=== PATIENT | male | born 1955 | race African-American/Black ===

== ENCOUNTER 2016-12-14 09:57 | Emergency (ER) | payer BC, OTHER ==
[2016-12-14 10:02] VITALS: BP 151/92; PULSE 93; TEMP 97.7; BMI 25.0
--- NOTE | 2016-12-14 11:42 | PDOC ---
History of Present Illness - General Chief Complaint: Pain Stated Complaint: LT FOOT PAIN Time Seen by Provider: 12/14/16 10:58 History Source: Patient - History of Present Illness Occurred: reports: last week Lower Extremity Pain Location: left: foot Method of Injury: Yes: direct blow Past History - Past Medical History Allergies/Adverse Reactions: Allergies Allergy/AdvReac Type Severity Reaction Status Date / Time No Known Allergies Allergy Verified 12/14/16 09:58 Home Medications: Ambulatory Orders Atorvastatin Ca [Lipitor] 20 mg PO HS 02/09/16 Ibuprofen [Motrin -] 800 mg PO Q6H #30 tablet 12/14/16 HTN: Yes - Immunization History Immunization Up to Date: Yes - Psycho/Social/Smoking Cessation Hx Anxiety: No Suicidal Ideation: No Smoking Status: No Smoking History: Former smoker Have you smoked in the past 12 months: No Number of Cigarettes Smoked Daily: 0 Information on smoking cessation initiated: No Hx Alcohol Use: No Drug/Substance Use Hx: No Substance Use Type: Alcohol Review of Systems - Review of Systems Musculoskeletal: Yes: Joint Pain, Joint Swelling *Physical Exam - Vital Signs Last Vital Signs Temp Pulse Resp BP Pulse Ox 97.7 F 93 H 20 151/92 98 12/14/16 09:59 12/14/16 09:59 12/14/16 09:59 12/14/16 09:59 12/14/16 09:59 - Physical Exam General Appearance: Yes: Appropriately Dressed. No: Apparent Distress HEENT: positive: Normal Voice Neck: positive: Supple Respiratory/Chest: negative: Respiratory Distress Extremity: positive: Tender, Swelling Integumentary: positive: Dry, Warm Neurologic: positive: Fully Oriented, Alert, Normal Mood/Affect Procedures - Splinting Splint Location: Left: Foot (posterior splint for metatarsal fx) Pre-Proc Neuro Vasc Exam: normal Hand-Made Type: orthoglass Splint Type: Yes: Long Leg Post-Proc Neuro Vasc Exam: normal [place] Bandage: yes, 4" ED Treatment Course - RADIOLOGY Radiology Studies Ordered: Category Date Time Status FOOT-LEFT [RAD] Stat Radiology 12/14/16 11:36 Ordered Medical Decision Making - Medical Decision Making 12/14/16 11:47 61-year-old male, denies any significant past medical history, here with persistent left foot pain status post trauma. Patient states week ago while at work. TV fell onto left foot. Has been using Aleve with some relief but as pain persists, here for evaluation. Patient well-appearing with minimal swelling to dorsum of left foot diffusely with tenderness to palpation mostly to medial aspect of foot. Will get x-rays today rule out fracture, pain control in ED 12/14/16 12:38 X-ray read as negative for fracture by radiologist but on my review of x-ray alongside Dr. Ortiz, pt clearly has a curvilinear lucency through mid to distal aspect of first left metatarsal consistent with a fracture. Patient's pain location also corresponds w/ finding. Will c/w ortho 12/14/16 13:11 Case discussed with orthopedic, who agrees with my findings and recommended posterior splint with crutches for non-weight bearing and for patient to follow- up in office this week 12/14/16 13:37 *DC/Admit/Observation/Transfer Diagnosis at time of Disposition: Metatarsal fracture Qualifiers: Encounter type: initial encounter Metatarsal bone: first Fracture type: closed Fracture alignment: displaced Laterality: left Qualified Code(s): S92.312A - Displaced fracture of first metatarsal bone, left foot, initial encounter for closed fracture - Discharge Dispostion Disposition: HOME Condition at time of disposition: Good - Prescriptions Prescriptions: Ibuprofen [Motrin -] 800 mg PO Q6H #30 tablet - Referrals Referrals: Pam Mclaughlin MD [Primary Care Provider] - Jordon Higginbotham MD [Staff Physician] - - Patient Instructions Printed Discharge Instructions: DI for Foot Fracture Additional Instructions: Follow with Dr Higginbotham this week - Post Discharge Activity Work/School Note: Back to Work
== END 2016-12-14 14:18 | disposition home or self-care (01) ==
LOC: JERFT 09:57
PROC: 2W3MX1Z Immobilization of Left Lower Extremity using Splint (ICD-10-PCS; principal; 2016-12-14)
DX: S92.312A Displaced fracture of first metatarsal bone, left foot, initial encounter for closed fracture (principal); W20.8XXA Other cause of strike by thrown, projected or falling object, initial encounter; Y93.89 Activity, other specified; Y92.89 Other specified places as the place of occurrence of the external cause; Y99.0 Civilian activity done for income or pay
CPT/HCPCS: 73630-TC-LT; 99281-25

== ENCOUNTER 2021-04-06 04:40 | Day surgery (SDC) | payer OTHER ==
[2021-04-01 14:38] VITALS: BMI 23.9
[2021-04-06 10:55] VITALS: TEMP 97.8
[2021-04-06 12:01] VITALS: BP 125/80; PULSE 77
== END 2021-04-06 12:01 | disposition home or self-care (01) ==
LOC: JASU-ENDO 04:40
PROVIDERS: ATTEND Internal Medicine Gastroenterology
PROC: 0DB98ZX Excision of Duodenum, Via Natural or Artificial Opening Endoscopic, Diagnostic (ICD-10-PCS; 2021-04-06)
PROC: 0DB78ZX Excision of Stomach, Pylorus, Via Natural or Artificial Opening Endoscopic, Diagnostic (ICD-10-PCS; 2021-04-06)
PROC: 0DJD8ZZ Inspection of Lower Intestinal Tract, Via Natural or Artificial Opening Endoscopic (ICD-10-PCS; principal; 2021-04-06 10:00)
DX: Z12.11 Encounter for screening for malignant neoplasm of colon (principal); Z86.010 Personal history of colon polyps; K29.50 Unspecified chronic gastritis without bleeding; B96.81 Helicobacter pylori [H. pylori] as the cause of diseases classified elsewhere; K64.8 Other hemorrhoids; K57.30 Diverticulosis of large intestine without perforation or abscess without bleeding
CPT/HCPCS: 43239; G0105; 88305-TC; 88342-TC

== ENCOUNTER 2022-06-15 13:39 | Emergency (ER) | payer OTHER ==
[2022-06-15 14:05] VITALS: BMI 23.0
[2022-06-15 16:51] LABS: BASO % 1.7 % (0-2.0); HEMATOCRIT 31.2 % (35.4-49); HEMOGLOBIN 10.8 GM/dL (11.7-16.9); LYMPH % 18.6 % (8-40); MCH 31.5 pg (25.7-33.7); MCHC 34.7 g/dl (32.0-35.9); MEAN CELL VOLUME 90.8 fl (80-96); MEAN PLT VOLUME 7.7 fl (7.5-11.1); MONO % 11.8 % (3.8-10.2); NEUT % 65.9 % (42.8-82.8); PLATELET COUNT 205 10^3/uL (134-434); RBC 3.43 M/mm3 (4.00-5.60); RDW 14.6 % (11.9-15.9); WHITE BLOOD COUNT 5.8 K/mm3 (4.0-10.0)
[2022-06-15 16:56] LABS: INR 1.31 (0.83-1.09); PROTHROMBIN TIME (PATIENT) 15.1 SEC (9.7-13.0)
[2022-06-15 16:59] LABS: ACTIVATED PTT 26.8 SECONDS (25.2-36.5)
[2022-06-15 17:13] LABS: ALBUMIN 4.4 g/dl (3.4-5.0); BLOOD UREA NITROGEN 7.4 mg/dL (7-18)
[2022-06-15 17:14] LABS: CALCIUM 9.2 mg/dL (8.5-10.1); MAGNESIUM 2.2 mg/dL (1.8-2.4)
[2022-06-15 17:18] LABS: CREATININE 0.9 mg/dL (0.55-1.3)
[2022-06-15 17:19] LABS: BILIRUBIN,TOTAL 0.8 mg/dL (0.2-1); TOT PROT 7.5 g/dl (6.4-8.2)
[2022-06-15] MEDS ORDERED: SODIUM CHLORIDE 0.9% 500 ML INFUS.BAG IV ONE (17:29)
[2022-06-15] MEDS ORDERED: ATORVASTATIN CA 20 MG TABLET (FP) PO ONE (18:03)
[2022-06-15] MEDS ORDERED: amLODIPine BESYLATE 10 MG TABLET (FP) PO ONE (18:03)
[2022-06-15] MEDS ORDERED: amLODIPine BESYLATE 10 MG TABLET (FP) ONE (19:03)
[2022-06-15] MEDS ORDERED: ATORVASTATIN CA 20 MG TABLET (FP) ONE (19:03)
[2022-06-15 20:05] VITALS: TEMP 98.4
[2022-06-15 20:58] LABS: EOS % 1.7 % (0-4.5); HEMATOCRIT 32.6 % (35.4-49); HEMOGLOBIN 11.1 GM/dL (11.7-16.9); LYMPH % 26.5 % (8-40); MCH 31.3 pg (25.7-33.7); MCHC 34.1 g/dl (32.0-35.9); MEAN CELL VOLUME 91.7 fl (80-96); MEAN PLT VOLUME 7.3 fl (7.5-11.1); MONO % 11.4 % (3.8-10.2); NEUT % 59.4 % (42.8-82.8); PLATELET COUNT 233 10^3/uL (134-434); RBC 3.55 M/mm3 (4.00-5.60); RDW 14.6 % (11.9-15.9); WHITE BLOOD COUNT 8.4 K/mm3 (4.0-10.0)
[2022-06-15 21:28] VITALS: BP 140/92; PULSE 102
== END 2022-06-15 21:29 | disposition home or self-care (01) ==
LOC: JER 13:39
DX: K92.1 Melena (principal)
CPT/HCPCS: 36415; 71046-TC-FY; 80053; 82272; 83735; 85025; 85610; 85730; 86850; 86900; 86901; 99284-25

== ENCOUNTER 2024-09-27 15:27 | Inpatient (IN) | payer MEDICARE, OTHER ==
[2024-09-27] MEDS ORDERED: ALBUTEROL SO4 2.5/IPRATROPIUM 0.5 INH SOL 3 ML VIAL.NEB. NEB ONE (16:18)
[2024-09-27] MEDS ORDERED: DEXAMETHASONE SOD PHOSPHATE 10 MG/1 ML VIAL ONE (16:32)
[2024-09-27] MEDS: ALBUTEROL SO4 2.5/IPRATROPIUM 0.5 INH SOL 3 ML VIAL.NEB. NEB ONE (16:32)
[2024-09-27] MEDS: DEXAMETHASONE SOD PHOSPHATE 10 MG/1 ML VIAL IVPUSH ONE (16:40)
[2024-09-27 17:54] LABS: VENOUS O2 SATURATION 54.5 % (70-80); VENOUS PH 7.333 (7.310-7.410)
[2024-09-27 17:55] LABS: BASO % 0.2 % (0-2.0); EOS % 0.2 % (0-4.5); HEMATOCRIT 39.5 % (35.4-49); HEMOGLOBIN 13.2 GM/dL (11.7-16.9); LYMPH % 6.6 % (8-40); MCH 28.4 pg (25.7-33.7); MCHC 33.4 g/dl (32.0-35.9); MEAN CELL VOLUME 85.2 fl (80-96); MEAN PLT VOLUME 9.1 fl (7.5-11.1); PLATELET COUNT 328 10^3/uL (134-434); RBC 4.63 M/mm3 (4.00-5.60); RDW 16.9 % (11.9-15.9)
[2024-09-27 18:02] LABS: INR 1.41 (0.83-1.09); PROTHROMBIN TIME (PATIENT) 16.1 SEC (9.7-13.0)
[2024-09-27 18:05] LABS: ACTIVATED PTT 29.6 SECONDS (25.2-36.5)
[2024-09-27 18:18] LABS: CHLORIDE 76 mmol/L (98-107); POTASSIUM 3.6 mmol/L (3.5-5.1)
[2024-09-27 18:21] LABS: CALCIUM 8.6 mg/dL (8.5-10.1)
[2024-09-27 18:22] LABS: ALBUMIN 3.1 g/dl (3.4-5.0); CO2 16 mmol/L (21-32); GLUCOSE,RANDOM 187 mg/dL (74-106); MAGNESIUM 2.5 mg/dL (1.8-2.4)
[2024-09-27 18:25] LABS: SGOT/AST 62 U/L (15-37); SGPT/ALT 50 U/L (13-61)
[2024-09-27 18:26] LABS: BILIRUBIN,TOTAL 1.8 mg/dL (0.2-1); TOT PROT 7.4 g/dl (6.4-8.2)
[2024-09-27 18:28] LABS: ALK PHOS 65 U/L (45-117)
[2024-09-27 18:43] LABS: ANION GAP 27 mmol/L (4-13); BLOOD UREA NITROGEN 118.5 mg/dL (7-18); CREATININE 8.4 mg/dL (0.55-1.3); SODIUM 119 mmol/L (136-145)
[2024-09-27 18:50] LABS: PHOSPHOROUS > 9.0 mg/dL (2.5-4.9)
[2024-09-27 18:51] LABS: EPI CELLS 19 /uL (0-25.1); HYALINE CASTS 1 /uL (0-3.1); URINE APPEARANCE TURBID; URINE BILIRUBIN 3+ (NEGATIVE); URINE COLOR DK YELLOW; URINE GLUCOSE (UA) NEGATIVE (NEGATIVE); URINE KETONE TRACE (NEGATIVE); URINE LEUK ESTERASE 1+ (NEGATIVE); URINE NITRITE POSITIVE (NEGATIVE); URINE PROTEIN 1+ (NEGATIVE); URINE WBC 19 /uL (0-25.8)
[2024-09-27 19:00] LABS: URINE BACTERIA 51.9 /uL (0-1359); URINE RBC 139.3 /uL (0-23.9)
[2024-09-27] MEDS: SODIUM CHLORIDE 0.9% 1000 ML INFUS.BAG IV ONE (21:44)
[2024-09-27] MEDS: CHLORHEXIDINE GLUCONATE 4% CLEANSER FOR DECOLONIZATION TP SCH (21:57)
[2024-09-27] MEDS: MUPIROCIN 2% TOPICAL OINTMENT FOR DECOLONIZATION NS SCH (21:57)
[2024-09-27] MEDS: SODIUM CHLORIDE 1,000 ML IV SCH (22:54)
[2024-09-27] MEDS ORDERED: CEFTRIAXONE 1 GM in DEXTROSE 5%-WATER - 50 ML IVPB ONE (23:15)
[2024-09-27] MEDS ORDERED: CEFTRIAXONE 1 G/50 ML PREMIX 50 ML IVPB ONE (23:49)
[2024-09-27] MEDS: ONDANSETRON 4 MG/2 ML VIAL IVPUSH ONE (23:50)
[2024-09-27] MEDS: CEFTRIAXONE 1 G/50 ML PREMIX 50 ML IVPB ONE (23:53)
[2024-09-28 00:22] LABS: CHLORIDE 81 mmol/L (98-107); POTASSIUM 4.1 mmol/L (3.5-5.1); SODIUM 121 mmol/L (136-145)
[2024-09-28 00:25] LABS: ALBUMIN 2.8 g/dl (3.4-5.0); ANION GAP 25 mmol/L (4-13); CO2 15 mmol/L (21-32)
[2024-09-28 00:26] LABS: GLUCOSE,RANDOM 209 mg/dL (74-106)
[2024-09-28 00:28] LABS: SGOT/AST 75 U/L (15-37); SGPT/ALT 51 U/L (13-61)
[2024-09-28 00:30] LABS: BILIRUBIN,TOTAL 1.6 mg/dL (0.2-1); BLOOD UREA NITROGEN 124.4 mg/dL (7-18); CREATININE 7.9 mg/dL (0.55-1.3); TOT PROT 6.7 g/dl (6.4-8.2)
[2024-09-28 00:31] LABS: ALK PHOS 54 U/L (45-117)
[2024-09-28] MEDS: SODIUM CHLORIDE 1,000 ML IV STA (01:00)
[2024-09-28 01:29] LABS: LACTIC ACID 4.2 mmol/L (0.4-2.0)
[2024-09-28] MEDS ORDERED: METOPROLOL TARTRATE 5 MG/5 ML VIAL ONE (01:43)
[2024-09-28] MEDS: METOPROLOL TARTRATE 5 MG/5 ML VIAL IVPUSH ONE ×3 (01:45→06:46)
[2024-09-28 03:41] LABS: CHLORIDE 84 mmol/L (98-107); POTASSIUM 3.9 mmol/L (3.5-5.1); SODIUM 123 mmol/L (136-145)
[2024-09-28 03:43] LABS: CALCIUM 7.1 mg/dL (8.5-10.1)
[2024-09-28 03:44] LABS: ALBUMIN 2.6 g/dl (3.4-5.0); ANION GAP 22 mmol/L (4-13); CO2 17 mmol/L (21-32); GLUCOSE,RANDOM 202 mg/dL (74-106)
[2024-09-28 03:47] LABS: SGOT/AST 109 U/L (15-37); SGPT/ALT 58 U/L (13-61)
[2024-09-28 03:48] LABS: BILIRUBIN,TOTAL 1.2 mg/dL (0.2-1)
[2024-09-28 03:49] LABS: TOT PROT 6.2 g/dl (6.4-8.2)
[2024-09-28 03:50] LABS: ALK PHOS 53 U/L (45-117)
[2024-09-28 03:58] LABS: CREATININE 7.5 mg/dL (0.55-1.3)
[2024-09-28] MEDS: CALCIUM GLUC IN NACL, ISO-OSM 1 GM/50 ML BAG IVPB SCH (04:46)
[2024-09-28] MEDS: INSULIN ASPART SLIDING SCALE (NOVOLOG) 1 VIAL SQ SCH (06:02)
[2024-09-28 07:25] LABS: HEMATOCRIT 31.9 % (35.4-49); HEMOGLOBIN 10.7 GM/dL (11.7-16.9); MCH 28.7 pg (25.7-33.7); MCHC 33.6 g/dl (32.0-35.9); MEAN CELL VOLUME 85.4 fl (80-96); MEAN PLT VOLUME 9.2 fl (7.5-11.1); PLATELET COUNT 259 10^3/uL (134-434); RBC 3.74 M/mm3 (4.00-5.60); RDW 16.6 % (11.9-15.9); WHITE BLOOD COUNT 21.8 K/mm3 (4.0-10.0)
[2024-09-28 07:34] LABS: INR 1.38 (0.83-1.09); PROTHROMBIN TIME (PATIENT) 15.7 SEC (9.7-13.0)
[2024-09-28 07:39] LABS: CHLORIDE 87 mmol/L (98-107); POTASSIUM 3.8 mmol/L (3.5-5.1); SODIUM 124 mmol/L (136-145)
[2024-09-28 07:42] LABS: ANION GAP 21 mmol/L (4-13); CO2 17 mmol/L (21-32); MAGNESIUM 2.3 mg/dL (1.8-2.4)
[2024-09-28] MEDS: CEFTRIAXONE 1,000 MG in DEXTROSE 5%-WATER - 50 ML IVPB ONE (07:43)
[2024-09-28] MEDS: CEFTRIAXONE 1 GM in CEFTRIAXONE 1 G/50 ML PREMIX 50 ML IVPB ONE (07:43)
[2024-09-28 07:44] LABS: ALBUMIN 2.6 g/dl (3.4-5.0); AMYLASE 429 U/L (25-115); GLUCOSE,RANDOM 150 mg/dL (74-106)
[2024-09-28 07:45] LABS: SGPT/ALT 58 U/L (13-61)
[2024-09-28] MEDS ORDERED: PIPERACILLIN/TAZOB 2.25 GM 2.25 GM in DEXTROSE 5%-WATER - 50 ML IVPB SCH (07:45)
[2024-09-28 07:46] LABS: BLOOD UREA NITROGEN 132.5 mg/dL (7-18); CALCIUM 8.6 mg/dL (8.5-10.1); PHOSPHOROUS 7.2 mg/dL (2.5-4.9); SGOT/AST 112 U/L (15-37)
[2024-09-28 07:47] LABS: CREATININE 7.5 mg/dL (0.55-1.3); TOT PROT 6.1 g/dl (6.4-8.2)
[2024-09-28 07:49] LABS: BILIRUBIN,TOTAL 1.1 mg/dL (0.2-1)
[2024-09-28 07:50] LABS: ALK PHOS 54 U/L (45-117)
[2024-09-28] MEDS: ALBUTEROL SO4 2.5/IPRATROPIUM 0.5 INH SOL 3 ML VIAL.NEB. NEB SCH (08:27)
[2024-09-28 08:54] LABS: ANISOCYTOSIS 0; MACROCYTOSIS 0
[2024-09-28] MEDS: ENOXAPARIN NA (PORCINE) 30 MG/0.3 ML DISP.SYRIN SQ SCH (09:09)
[2024-09-28] MEDS: PIPERACILLIN/TAZOB 2.25 GM 2.25 GM/50 ML BAG IVPB SCH ×2 (09:09→17:07)
[2024-09-28] MEDS ORDERED: ENOXAPARIN NA (PORCINE) 30 MG/0.3 ML DISP.SYRIN SQ SCH ×2 (10:00)
[2024-09-28 11:24] LABS: CHLORIDE 86 mmol/L (98-107); POTASSIUM 3.9 mmol/L (3.5-5.1); SODIUM 124 mmol/L (136-145)
[2024-09-28 11:27] LABS: CALCIUM 7.9 mg/dL (8.5-10.1)
[2024-09-28 11:28] LABS: ALBUMIN 2.5 g/dl (3.4-5.0); ANION GAP 21 mmol/L (4-13); BLOOD UREA NITROGEN 133.1 mg/dL (7-18); CO2 17 mmol/L (21-32); GLUCOSE,RANDOM 139 mg/dL (74-106)
[2024-09-28] MEDS ORDERED: LACTATED RINGERS SOLUTION 1,000 ML/1,000 ML INFUS.BAG IV SCH ×2 (11:30→14:46)
[2024-09-28 11:31] LABS: SGOT/AST 104 U/L (15-37); SGPT/ALT 57 U/L (13-61)
[2024-09-28 11:33] LABS: BILIRUBIN,TOTAL 1.2 mg/dL (0.2-1); TOT PROT 6.1 g/dl (6.4-8.2)
[2024-09-28 11:34] LABS: ALK PHOS 57 U/L (45-117)
[2024-09-28 11:45] LABS: CREATININE 7.6 mg/dL (0.55-1.3)
[2024-09-28] MEDS: LACTATED RINGERS SOLUTION 1,000 ML/1,000 ML INFUS.BAG IV SCH ×3 (12:05→17:22)
[2024-09-28] MEDS: LACTATED RINGERS SOLUTION 1000 ML INFUS.BAG IV ONE (12:35)
[2024-09-28 15:23] LABS: BILIRUBIN,DIRECT 0.7 mg/dL (0.0-0.2)
[2024-09-28 16:05] LABS: CHLORIDE 88 mmol/L (98-107); POTASSIUM 3.7 mmol/L (3.5-5.1); SODIUM 125 mmol/L (136-145)
[2024-09-28 16:08] LABS: CALCIUM 7.8 mg/dL (8.5-10.1)
[2024-09-28 16:09] LABS: ANION GAP 21 mmol/L (4-13); CO2 16 mmol/L (21-32); GLUCOSE,RANDOM 129 mg/dL (74-106)
[2024-09-28 16:12] LABS: CREATININE 7.4 mg/dL (0.55-1.3)
[2024-09-28 16:15] LABS: BLOOD UREA NITROGEN 131.4 mg/dL (7-18)
[2024-09-28] MEDS: METOPROLOL TARTRATE 5 MG/5 ML VIAL IVPUSH SCH (21:18)
[2024-09-28 21:33] LABS: CHLORIDE 91 mmol/L (98-107); POTASSIUM 3.6 mmol/L (3.5-5.1); SODIUM 127 mmol/L (136-145)
[2024-09-28 21:34] LABS: CALCIUM 7.9 mg/dL (8.5-10.1)
[2024-09-28 21:35] LABS: ANION GAP 19 mmol/L (4-13); CO2 18 mmol/L (21-32); GLUCOSE,RANDOM 127 mg/dL (74-106)
[2024-09-28 21:38] LABS: CREATININE 7.2 mg/dL (0.55-1.3)
[2024-09-28 21:42] LABS: BLOOD UREA NITROGEN 126.8 mg/dL (7-18)
[2024-09-29] MEDS: LACTATED RINGERS SOLUTION 1,000 ML/1,000 ML INFUS.BAG IV SCH (06:24)
[2024-09-29 08:32] LABS: CHLORIDE 92 mmol/L (98-107); POTASSIUM 3.7 mmol/L (3.5-5.1); SODIUM 129 mmol/L (136-145)
[2024-09-29 08:37] LABS: ANION GAP 18 mmol/L (4-13); CO2 19 mmol/L (21-32); GLUCOSE,RANDOM 118 mg/dL (74-106)
[2024-09-29 08:40] LABS: CREATININE 7.2 mg/dL (0.55-1.3)
[2024-09-29 08:41] LABS: BLOOD UREA NITROGEN 126.7 mg/dL (7-18)
[2024-09-29 08:55] LABS: CALCIUM 8.3 mg/dL (8.5-10.1)
[2024-09-29] MEDS: THIAMINE HCL 200 MG/2 ML VIAL IVPB SCH (10:21)
[2024-09-29 13:27] LABS: CHLORIDE 93 mmol/L (98-107); POTASSIUM 3.4 mmol/L (3.5-5.1); SODIUM 130 mmol/L (136-145)
[2024-09-29 13:28] LABS: CALCIUM 7.8 mg/dL (8.5-10.1)
[2024-09-29 13:29] LABS: ANION GAP 19 mmol/L (4-13); CO2 18 mmol/L (21-32); GLUCOSE,RANDOM 113 mg/dL (74-106)
[2024-09-29 13:32] LABS: CREATININE 6.9 mg/dL (0.55-1.3)
[2024-09-29 13:34] LABS: BLOOD UREA NITROGEN 127.5 mg/dL (7-18)
[2024-09-29] MEDS: POTASSIUM CHLORIDE ORAL LIQUID 20 MEQ/15 ML NGT ONE (14:20)
[2024-09-29] MEDS: PANTOPRAZOLE SODIUM 40 MG VIAL IVPUSH ONE (16:20)
[2024-09-29] MEDS: KCL 10 MEQ IVPB 10 MEQ/100 ML INFUS.BAG IVPB SCH (16:20)
[2024-09-30 08:07] LABS: HEMATOCRIT 32.7 % (35.4-49); HEMOGLOBIN 10.8 GM/dL (11.7-16.9); MCH 28.6 pg (25.7-33.7); MCHC 33.1 g/dl (32.0-35.9); MEAN CELL VOLUME 86.2 fl (80-96); MEAN PLT VOLUME 8.5 fl (7.5-11.1); PLATELET COUNT 268 10^3/uL (134-434); RBC 3.79 M/mm3 (4.00-5.60); RDW 16.7 % (11.9-15.9); WHITE BLOOD COUNT 15.5 K/mm3 (4.0-10.0)
[2024-09-30 08:30] LABS: CHLORIDE 98 mmol/L (98-107); POTASSIUM 3.8 mmol/L (3.5-5.1); SODIUM 133 mmol/L (136-145)
[2024-09-30 08:37] LABS: ALBUMIN 2.4 g/dl (3.4-5.0); ANION GAP 13 mmol/L (4-13); CALCIUM 8.7 mg/dL (8.5-10.1); CO2 22 mmol/L (21-32)
[2024-09-30 08:38] LABS: GLUCOSE,RANDOM 98 mg/dL (74-106); MAGNESIUM 2.4 mg/dL (1.8-2.4)
[2024-09-30 08:39] LABS: BLOOD UREA NITROGEN 118.8 mg/dL (7-18)
[2024-09-30 08:40] LABS: SGOT/AST 36 U/L (15-37); SGPT/ALT 36 U/L (13-61)
[2024-09-30 08:41] LABS: CREATININE 6.2 mg/dL (0.55-1.3)
[2024-09-30 08:42] LABS: BILIRUBIN,TOTAL 0.9 mg/dL (0.2-1); TOT PROT 5.8 g/dl (6.4-8.2)
[2024-09-30 08:43] LABS: ALK PHOS 51 U/L (45-117)
[2024-09-30] MEDS: PANTOPRAZOLE SODIUM 40 MG VIAL IVPUSH SCH (09:06)
[2024-09-30] MEDS: LACTATED RINGERS SOLUTION 1,000 ML/1,000 ML INFUS.BAG IV SCH (12:42)
[2024-10-01 08:20] LABS: EOS % 0.4 % (0-4.5); HEMATOCRIT 32.4 % (35.4-49); HEMOGLOBIN 10.9 GM/dL (11.7-16.9); LYMPH % 4.5 % (8-40); MCH 29.1 pg (25.7-33.7); MCHC 33.6 g/dl (32.0-35.9); MEAN CELL VOLUME 86.8 fl (80-96); MEAN PLT VOLUME 8.3 fl (7.5-11.1); MONO % 7.3 % (3.8-10.2); NEUT % 87.8 % (42.8-82.8); PLATELET COUNT 271 10^3/uL (134-434); RBC 3.73 M/mm3 (4.00-5.60); RDW 16.7 % (11.9-15.9); WHITE BLOOD COUNT 17.1 K/mm3 (4.0-10.0)
[2024-10-01 08:50] LABS: POTASSIUM 3.8 mmol/L (3.5-5.1)
[2024-10-01 08:52] LABS: ALBUMIN 2.3 g/dl (3.4-5.0); BLOOD UREA NITROGEN 99.2 mg/dL (7-18); CALCIUM 8.7 mg/dL (8.5-10.1); MAGNESIUM 2.1 mg/dL (1.8-2.4)
[2024-10-01 08:55] LABS: CREATININE 4.4 mg/dL (0.55-1.3)
[2024-10-01 08:57] LABS: BILIRUBIN,TOTAL 0.8 mg/dL (0.2-1); TOT PROT 5.8 g/dl (6.4-8.2)
[2024-10-01] MEDS ORDERED: BUPIVACAINE HCL/PF 0.25% (2.5MG/ML) 10 ML VIAL ONE (11:19)
[2024-10-01] MEDS ORDERED: HEPARIN NA (PORCINE) 5,000 UNITS/ML 1ML VIAL ONE (11:24)
[2024-10-01] MEDS ORDERED: CEFOXITIN SODIUM 2 GM IVPB ONE (11:24)
[2024-10-01] MEDS ORDERED: ROCURONIUM BROMIDE 50 MG/5 ML SYRINGE ONE (12:06)
[2024-10-01] MEDS ORDERED: SUCCINYLCHOLINE CHLORIDE 200 MG/10 ML SYRINGE ONE (12:06)
[2024-10-01] MEDS ORDERED: PROPOFOL 20 ML ONE (12:06)
[2024-10-01] MEDS ORDERED: HYDROmorphone HCl 2 MG/ML VIAL ONE ×2 (12:06→14:27)
[2024-10-01] MEDS: BUPIVACAINE HCL/PF 0.25% (2.5MG/ML) 10 ML VIAL IJ ONE ×2 (12:31)
[2024-10-01] MEDS ORDERED: PIPERACILLIN/TAZOBACTAM 3.375 GM VIAL IVPB ONE (14:11)
[2024-10-01] MEDS ORDERED: NEOSTIGMINE METHYLSULFATE 0.5 MG/1 ML - 10 ML MDV ONE (15:54)
[2024-10-01] MEDS: LACTATED RINGERS SOLUTION 1,000 ML/1,000 ML INFUS.BAG IV ONE ×2 (17:17→18:44)
[2024-10-01 20:29] LABS: ARTERIAL BLOOD GAS PO2 95.1 mmHg (80-100); ARTERIAL BLOOD GAS pH 7.377 (7.350-7.450)
[2024-10-01 20:30] LABS: ARTERIAL BLD GAS O2 SATURATION 97.2 % (95-98); ARTERIAL BLOOD GAS BASE EXCESS -5.1 mmol/L (-2-2)
[2024-10-01 20:31] LABS: ALLENS TEST POSITIVE
[2024-10-01 20:32] LABS: HEMATOCRIT 35.7 % (35.4-49); HEMOGLOBIN 11.8 GM/dL (11.7-16.9); MCH 28.8 pg (25.7-33.7); MEAN CELL VOLUME 87.2 fl (80-96); MEAN PLT VOLUME 8.3 fl (7.5-11.1); PLATELET COUNT 318 10^3/uL (134-434); RDW 16.2 % (11.9-15.9); WHITE BLOOD COUNT 29.9 K/mm3 (4.0-10.0)
[2024-10-01 21:10] LABS: POTASSIUM 4.6 mmol/L (3.5-5.1)
[2024-10-01 21:12] LABS: CALCIUM 7.8 mg/dL (8.5-10.1)
[2024-10-01 21:13] LABS: BLOOD UREA NITROGEN 89.1 mg/dL (7-18); MAGNESIUM 1.8 mg/dL (1.8-2.4)
[2024-10-01 21:16] LABS: PHOSPHOROUS 4.4 mg/dL (2.5-4.9)
[2024-10-01 21:17] LABS: ALBUMIN 1.7 g/dl (3.4-5.0); BILIRUBIN,TOTAL 2.4 mg/dL (0.2-1); TOT PROT 4.2 g/dl (6.4-8.2)
[2024-10-01] MEDS: DEXTROSE 50%-WATER 25 GM/50 ML DISP.SYRIN IVPUSH ONE (21:34)
[2024-10-01] MEDS: MAGNESIUM 2GM/50ML STERILE WATER IVPB IVPB ONE (21:34)
[2024-10-01] MEDS: ACETAMINOPHEN 1000 MG/100 ML BAG IVPB ONE (22:38)
[2024-10-01] MEDS: CALCIUM GLUC IN NACL, ISO-OSM 1 GM/50 ML BAG IVPB SCH (22:39)
[2024-10-01] MEDS ORDERED: NOREPINEPHRINE BITARTRATE 4 MG/4 ML ML IV ONE (23:11)
[2024-10-01] MEDS: NOREPINEPHRINE BITARTRATE 4,000 MCG in DEXTROSE 5%-WATER - 496 ML IV SCH (23:20)
[2024-10-01 23:39] LABS: ANISOCYTOSIS 0; HELMET CELLS 0; HOWELL-JOLLY BODIES 0; MACROCYTOSIS 0; OVALOCYTE 0; ROULEAU 0; SICKELED CELLS 0; TARGET CELLS 0; TEAR DROP CELLS 0; TOXIC GRANULATION 0
[2024-10-01] MEDS ORDERED: ALBUMIN HUMAN 5% 500 ML IV SOLUTION IV ONE (23:53)
[2024-10-02] MEDS: HYDROmorphone HCl 2 MG/ML VIAL IVPUSH PRN (00:01)
[2024-10-02] MEDS: LACTATED RINGERS SOLUTION 1,000 ML/1,000 ML INFUS.BAG IV SCH ×2 (00:03→10:16)
[2024-10-02] MEDS: ACETAMINOPHEN 1000 MG/100 ML BAG IVPB SCH (00:04)
[2024-10-02] MEDS: ALBUMIN HUMAN 5% 500 ML IV SOLUTION IV ONE (00:06)
[2024-10-02] MEDS: HYDROmorphone *PCA* 10MG/50ML DISP.SYRIN PCA SCH (01:09)
[2024-10-02] MEDS: PIPERACILLIN/TAZOB 2.25 GM 2.25 GM/50 ML BAG IVPB SCH (01:14)
[2024-10-02] MEDS: INSULIN ASPART SLIDING SCALE (NOVOLOG) 1 VIAL SQ SCH (06:31)
[2024-10-02 06:54] LABS: HEMATOCRIT 33.2 % (35.4-49); MCH 29.2 pg (25.7-33.7); MCHC 33.1 g/dl (32.0-35.9); MEAN CELL VOLUME 88.2 fl (80-96); MEAN PLT VOLUME 8.5 fl (7.5-11.1); PLATELET COUNT 302 10^3/uL (134-434); RBC 3.77 M/mm3 (4.00-5.60); RDW 15.7 % (11.9-15.9); WHITE BLOOD COUNT 28.4 K/mm3 (4.0-10.0)
[2024-10-02 07:06] LABS: POTASSIUM 4.9 mmol/L (3.5-5.1)
[2024-10-02 07:15] LABS: ALBUMIN 1.6 g/dl (3.4-5.0); BLOOD UREA NITROGEN 91.7 mg/dL (7-18)
[2024-10-02 07:18] LABS: CREATININE 4.7 mg/dL (0.55-1.3)
[2024-10-02 07:19] LABS: BILIRUBIN,TOTAL 2.8 mg/dL (0.2-1); TOT PROT 4.2 g/dl (6.4-8.2)
[2024-10-02] MEDS: ALBUTEROL SO4 2.5/IPRATROPIUM 0.5 INH SOL 3 ML VIAL.NEB. NEB SCH (08:15)
[2024-10-02 08:51] LABS: ANISOCYTOSIS 0; MACROCYTOSIS 0
[2024-10-02] MEDS: PANTOPRAZOLE SODIUM 40 MG VIAL IVPUSH SCH (09:34)
[2024-10-02] MEDS: THIAMINE HCL 200 MG/2 ML VIAL IVPB SCH (09:35)
[2024-10-02] MEDS: METOPROLOL TARTRATE 5 MG/5 ML VIAL IVPUSH SCH (09:35)
[2024-10-02] MEDS: ENOXAPARIN NA (PORCINE) 30 MG/0.3 ML DISP.SYRIN SQ SCH (09:36)
[2024-10-02] MEDS: MUPIROCIN 2% TOPICAL OINTMENT FOR DECOLONIZATION NS SCH (09:36)
[2024-10-02] MEDS: CHLORHEXIDINE GLUCONATE 4% CLEANSER FOR DECOLONIZATION TP SCH (21:06)
[2024-10-03 06:58] LABS: HEMATOCRIT 27.3 % (35.4-49); HEMOGLOBIN 9.1 GM/dL (11.7-16.9); MCH 29.5 pg (25.7-33.7); MCHC 33.5 g/dl (32.0-35.9); MEAN CELL VOLUME 88.2 fl (80-96); MEAN PLT VOLUME 8.4 fl (7.5-11.1); PLATELET COUNT 301 10^3/uL (134-434); RDW 16.5 % (11.9-15.9); WHITE BLOOD COUNT 23.8 K/mm3 (4.0-10.0)
[2024-10-03] MEDS ORDERED: PNEUMOC 20-VAL CONJ-DIP CRM/PF 0.5 ML SYRINGE IM ONE (08:00)
[2024-10-03 08:10] LABS: POTASSIUM 4.3 mmol/L (3.5-5.1)
[2024-10-03 08:13] LABS: ALBUMIN 1.7 g/dl (3.4-5.0); BLOOD UREA NITROGEN 97.3 mg/dL (7-18); CALCIUM 8.1 mg/dL (8.5-10.1); MAGNESIUM 2.4 mg/dL (1.8-2.4)
[2024-10-03 08:16] LABS: PHOSPHOROUS 5.2 mg/dL (2.5-4.9)
[2024-10-03 08:17] LABS: CREATININE 5.2 mg/dL (0.55-1.3)
[2024-10-03 08:18] LABS: BILIRUBIN,TOTAL 1.6 mg/dL (0.2-1); TOT PROT 4.6 g/dl (6.4-8.2)
[2024-10-03 09:12] LABS: ANISOCYTOSIS 0; HELMET CELLS 0; HOWELL-JOLLY BODIES 0; MACROCYTOSIS 0; OVALOCYTE 0; ROULEAU 0; SICKELED CELLS 0; TARGET CELLS 0; TEAR DROP CELLS 0; TOXIC GRANULATION 0
[2024-10-03 15:12] LABS: C-ANCA <1:20 titer (Neg:<1:20)
[2024-10-03] MEDS: AMINO ACIDS 4.25%/D5W 1,000 ML IV SCH (17:12)
[2024-10-03] MEDS: MULTIVIT INJ. ADULT COMBO WITH VIT K 1 COMBO 10 ML VIAL IV SCH (17:13)
[2024-10-03] MEDS: LACTATED RINGERS SOLUTION 1,000 ML/1,000 ML INFUS.BAG IV SCH (18:59)
[2024-10-03] MEDS: MULTIVIT INJECTION ADULT 10 ML in AMINO ACIDS 4.25%/D5W 1,000 ML IV SCH (19:00)
[2024-10-04 07:39] LABS: HEMATOCRIT 26.8 % (35.4-49); HEMOGLOBIN 8.8 GM/dL (11.7-16.9); MCHC 32.9 g/dl (32.0-35.9); MEAN CELL VOLUME 88.1 fl (80-96); MEAN PLT VOLUME 8.2 fl (7.5-11.1); PLATELET COUNT 346 10^3/uL (134-434); RBC 3.04 M/mm3 (4.00-5.60); RDW 16.3 % (11.9-15.9); WHITE BLOOD COUNT 20.5 K/mm3 (4.0-10.0)
[2024-10-04 07:50] LABS: POTASSIUM 4.3 mmol/L (3.5-5.1)
[2024-10-04 07:53] LABS: ALBUMIN 1.7 g/dl (3.4-5.0); BLOOD UREA NITROGEN 84.1 mg/dL (7-18); CALCIUM 8.1 mg/dL (8.5-10.1)
[2024-10-04 07:54] LABS: MAGNESIUM 2.1 mg/dL (1.8-2.4)
[2024-10-04 07:57] LABS: PHOSPHOROUS 4.3 mg/dL (2.5-4.9)
[2024-10-04 07:58] LABS: BILIRUBIN,TOTAL 1.3 mg/dL (0.2-1); TOT PROT 4.8 g/dl (6.4-8.2)
[2024-10-04] MEDS: hydrALAZINE HCL 20 MG/ML VIAL IVPUSH PRN (09:54)
[2024-10-04] MEDS: ALBUTEROL SO4 2.5/IPRATROPIUM 0.5 INH SOL 3 ML VIAL.NEB. NEB ONE (11:35)
[2024-10-04] MEDS: ALBUTEROL SO4 2.5/IPRATROPIUM 0.5 INH SOL 3 ML VIAL.NEB. NEB SCH (15:09)
[2024-10-04] MEDS: morphine SULFATE 4 MG/ML VIAL IVPUSH PRN (16:23)
[2024-10-04] MEDS: PIPERACILLIN/TAZOB 2.25 GM 2.25 GM/50 ML BAG IVPB SCH (17:27)
[2024-10-04] MEDS: INSULIN ASPART SLIDING SCALE (NOVOLOG) 1 VIAL SQ SCH (17:27)
[2024-10-04] MEDS: ACETAMINOPHEN 1000 MG/100 ML BAG IVPB SCH (17:46)
[2024-10-04] MEDS ORDERED: CHLORHEXIDINE GLUCONATE 4% CLEANSER FOR DECOLONIZATION TP SCH (22:00)
[2024-10-05 08:29] LABS: POTASSIUM 4.4 mmol/L (3.5-5.1)
[2024-10-05 08:34] LABS: HEMATOCRIT 27.8 % (35.4-49); HEMOGLOBIN 9.3 GM/dL (11.7-16.9); MCH 29.3 pg (25.7-33.7); MCHC 33.4 g/dl (32.0-35.9); MEAN CELL VOLUME 87.8 fl (80-96); MEAN PLT VOLUME 7.9 fl (7.5-11.1); PLATELET COUNT 420 10^3/uL (134-434); RBC 3.17 M/mm3 (4.00-5.60); RDW 16.4 % (11.9-15.9); WHITE BLOOD COUNT 14.9 K/mm3 (4.0-10.0)
[2024-10-05 08:35] LABS: ALBUMIN 1.9 g/dl (3.4-5.0); MAGNESIUM 1.6 mg/dL (1.8-2.4)
[2024-10-05 08:38] LABS: BILIRUBIN,TOTAL 1.3 mg/dL (0.2-1); CREATININE 2.8 mg/dL (0.55-1.3); PHOSPHOROUS 3.1 mg/dL (2.5-4.9); TOT PROT 5.2 g/dl (6.4-8.2)
[2024-10-05] MEDS: PANTOPRAZOLE SODIUM 40 MG VIAL IVPUSH SCH (09:23)
[2024-10-05] MEDS: MAGNESIUM 2GM/50ML STERILE WATER IVPB IVPB ONE (09:23)
[2024-10-05] MEDS: THIAMINE HCL 200 MG/2 ML VIAL IVPB SCH (09:23)
[2024-10-05] MEDS: ENOXAPARIN NA (PORCINE) 30 MG/0.3 ML DISP.SYRIN SQ SCH (09:23)
[2024-10-05] MEDS: MULTIVIT INJ. ADULT COMBO WITH VIT K 1 COMBO 10 ML VIAL IV SCH (10:00)
[2024-10-05] MEDS ORDERED: MAGNESIUM SULF 50% (8.12 MEQ/2 ML-1 GM VIAL) IVPB ONE (11:13)
[2024-10-05] MEDS: LACTATED RINGERS SOLUTION 1000 ML INFUS.BAG IV ONE (13:02)
[2024-10-05] MEDS: AMINO ACIDS 4.25%/D5W 1,000 ML IV SCH (13:14)
[2024-10-05] MEDS: ALBUTEROL SO4 2.5/IPRATROPIUM 0.5 INH SOL 3 ML VIAL.NEB. NEB SCH (21:00)
[2024-10-05] MEDS: ACETYLCYSTEINE 20% 200MG/ML 4 ML VIAL *FOR ORAL / INH USE ONLY PO ONE (23:03)
[2024-10-06] MEDS: ACETYLCYSTEINE 20% 200MG/ML 4 ML VIAL *FOR ORAL / INH USE ONLY PO SCH ×2 (00:22→17:50)
[2024-10-06] MEDS ORDERED: ALBUTEROL SO4 HFA INHALER IH PRN (00:24)
[2024-10-06 09:19] LABS: HEMATOCRIT 25.2 % (35.4-49); HEMOGLOBIN 8.4 GM/dL (11.7-16.9); MCH 29.5 pg (25.7-33.7); MCHC 33.3 g/dl (32.0-35.9); MEAN CELL VOLUME 88.5 fl (80-96); MEAN PLT VOLUME 7.7 fl (7.5-11.1); PLATELET COUNT 388 10^3/uL (134-434); RBC 2.85 M/mm3 (4.00-5.60); RDW 16.2 % (11.9-15.9); WHITE BLOOD COUNT 13.5 K/mm3 (4.0-10.0)
[2024-10-06 09:29] LABS: POTASSIUM 3.9 mmol/L (3.5-5.1)
[2024-10-06 09:31] LABS: ALBUMIN 1.8 g/dl (3.4-5.0)
[2024-10-06 09:32] LABS: BLOOD UREA NITROGEN 41.7 mg/dL (7-18); CALCIUM 8.2 mg/dL (8.5-10.1); MAGNESIUM 1.6 mg/dL (1.8-2.4)
[2024-10-06 09:35] LABS: CREATININE 1.9 mg/dL (0.55-1.3); PHOSPHOROUS 2.3 mg/dL (2.5-4.9)
[2024-10-06 09:36] LABS: BILIRUBIN,TOTAL 0.9 mg/dL (0.2-1); TOT PROT 5.4 g/dl (6.4-8.2)
[2024-10-06] MEDS ORDERED: MAGNESIUM 1GM/D5W 100ML - 100 ML IVPB IVPB ONE (11:15)
[2024-10-06] MEDS: MAGNESIUM 1GM/D5W 100ML - 100 ML IVPB IVPB ONE (14:58)
[2024-10-07 07:33] LABS: POTASSIUM 3.6 mmol/L (3.5-5.1)
[2024-10-07 07:35] LABS: BLOOD UREA NITROGEN 30.1 mg/dL (7-18); CALCIUM 7.9 mg/dL (8.5-10.1); MAGNESIUM 1.4 mg/dL (1.8-2.4)
[2024-10-07 07:39] LABS: CREATININE 1.6 mg/dL (0.55-1.3); PHOSPHOROUS 2.3 mg/dL (2.5-4.9)
[2024-10-07 08:36] LABS: BASO % 0.4 % (0-2.0); EOS % 0.4 % (0-4.5); HEMATOCRIT 24.2 % (35.4-49); MCH 29.2 pg (25.7-33.7); MCHC 33.1 g/dl (32.0-35.9); MEAN CELL VOLUME 88.4 fl (80-96); MEAN PLT VOLUME 7.8 fl (7.5-11.1); MONO % 5.5 % (3.8-10.2); NEUT % 86.7 % (42.8-82.8); PLATELET COUNT 403 10^3/uL (134-434); RBC 2.74 M/mm3 (4.00-5.60); RDW 16.4 % (11.9-15.9); WHITE BLOOD COUNT 15.5 K/mm3 (4.0-10.0)
[2024-10-08 08:28] LABS: BASO % 0.4 % (0-2.0); EOS % 0.6 % (0-4.5); HEMATOCRIT 24.3 % (35.4-49); LYMPH % 8.8 % (8-40); MCH 28.9 pg (25.7-33.7); MCHC 33.1 g/dl (32.0-35.9); MEAN CELL VOLUME 87.5 fl (80-96); MEAN PLT VOLUME 7.7 fl (7.5-11.1); MONO % 6.1 % (3.8-10.2); NEUT % 84.1 % (42.8-82.8); PLATELET COUNT 425 10^3/uL (134-434); RBC 2.77 M/mm3 (4.00-5.60); RDW 15.9 % (11.9-15.9); WHITE BLOOD COUNT 11.8 K/mm3 (4.0-10.0)
[2024-10-08 08:29] LABS: INR 1.46 (0.83-1.09); PROTHROMBIN TIME (PATIENT) 16.3 SEC (9.7-13.0)
[2024-10-08 08:56] LABS: POTASSIUM 3.5 mmol/L (3.5-5.1)
[2024-10-08 09:08] LABS: ALBUMIN 1.8 g/dl (3.4-5.0); BLOOD UREA NITROGEN 25.3 mg/dL (7-18); MAGNESIUM 1.5 mg/dL (1.8-2.4)
[2024-10-08 09:11] LABS: CREATININE 1.2 mg/dL (0.55-1.3)
[2024-10-08 09:12] LABS: PHOSPHOROUS 2.2 mg/dL (2.5-4.9)
[2024-10-08 09:13] LABS: BILIRUBIN,TOTAL 0.6 mg/dL (0.2-1); TOT PROT 5.1 g/dl (6.4-8.2)
[2024-10-09 09:18] LABS: HEMATOCRIT 24.2 % (35.4-49); HEMOGLOBIN 8.1 GM/dL (11.7-16.9); MCH 28.8 pg (25.7-33.7); MCHC 33.3 g/dl (32.0-35.9); MEAN CELL VOLUME 86.6 fl (80-96); MEAN PLT VOLUME 7.5 fl (7.5-11.1); PLATELET COUNT 454 10^3/uL (134-434); RBC 2.79 M/mm3 (4.00-5.60); RDW 15.8 % (11.9-15.9); WHITE BLOOD COUNT 10.6 K/mm3 (4.0-10.0)
[2024-10-09 09:45] LABS: POTASSIUM 3.2 mmol/L (3.5-5.1)
[2024-10-09 09:56] LABS: ALBUMIN 1.9 g/dl (3.4-5.0); BLOOD UREA NITROGEN 17.5 mg/dL (7-18); CALCIUM 7.6 mg/dL (8.5-10.1); MAGNESIUM 1.3 mg/dL (1.8-2.4)
[2024-10-09 09:59] LABS: BILIRUBIN,TOTAL 0.6 mg/dL (0.2-1); PHOSPHOROUS 2.1 mg/dL (2.5-4.9); TOT PROT 5.2 g/dl (6.4-8.2)
[2024-10-09 10:01] LABS: CREATININE 1.1 mg/dL (0.55-1.3)
[2024-10-09] MEDS: MAGNESIUM 2GM/50ML STERILE WATER IVPB IVPB ONE (11:01)
[2024-10-09] MEDS: POTASSIUM CHLORIDE ORAL LIQUID 20 MEQ/15 ML PO ONE (11:01)
[2024-10-09] MEDS: POTASSIUM PHOSPHATE 30 MM in SODIUM CHLORIDE 500 ML IVPB ONE (12:04)
[2024-10-09] MEDS: MULTIVIT INJ. ADULT COMBO WITH VIT K 1 COMBO 10 ML VIAL IV ONE (17:17)
[2024-10-10] MEDS: PIPERACILLIN/TAZOB 2.25 GM 2.25 GM/50 ML BAG IVPB SCH (10:58)
[2024-10-10] MEDS: ENOXAPARIN NA (PORCINE) 40 MG/0.4 ML DISP.SYRIN SQ SCH (11:03)
[2024-10-10] MEDS: PANTOPRAZOLE SODIUM 40 MG VIAL IVPUSH SCH (11:03)
[2024-10-10] MEDS: ACETAMINOPHEN 1000 MG/100 ML BAG IVPB SCH (11:04)
[2024-10-10] MEDS: THIAMINE HCL 200 MG/2 ML VIAL IVPB SCH (11:05)
[2024-10-10] MEDS: ALBUTEROL SO4 2.5/IPRATROPIUM 0.5 INH SOL 3 ML VIAL.NEB. NEB SCH (11:15)
[2024-10-10] MEDS: INSULIN ASPART SLIDING SCALE (NOVOLOG) 1 VIAL SQ SCH (11:50)
[2024-10-10] MEDS ORDERED: ACETAMINOPHEN 1000 MG/100 ML BAG IVPB SCH (11:53)
[2024-10-10 12:00] LABS: BASO % 0.7 % (0-2.0); EOS % 0.6 % (0-4.5); HEMATOCRIT 24.4 % (35.4-49); HEMOGLOBIN 8.3 GM/dL (11.7-16.9); LYMPH % 11.8 % (8-40); MCH 29.3 pg (25.7-33.7); MCHC 33.8 g/dl (32.0-35.9); MEAN CELL VOLUME 86.8 fl (80-96); MEAN PLT VOLUME 7.6 fl (7.5-11.1); MONO % 7.4 % (3.8-10.2); NEUT % 79.5 % (42.8-82.8); PLATELET COUNT 434 10^3/uL (134-434); RBC 2.82 M/mm3 (4.00-5.60); RDW 15.6 % (11.9-15.9); WHITE BLOOD COUNT 10.5 K/mm3 (4.0-10.0)
[2024-10-10 12:32] LABS: POTASSIUM 3.3 mmol/L (3.5-5.1)
[2024-10-10 12:39] LABS: BLOOD UREA NITROGEN 13.2 mg/dL (7-18); CALCIUM 7.8 mg/dL (8.5-10.1)
[2024-10-10 12:40] LABS: MAGNESIUM 1.4 mg/dL (1.8-2.4)
[2024-10-10 12:44] LABS: BILIRUBIN,TOTAL 0.6 mg/dL (0.2-1); CREATININE 1.1 mg/dL (0.55-1.3); PHOSPHOROUS 2.1 mg/dL (2.5-4.9); TOT PROT 5.6 g/dl (6.4-8.2)
[2024-10-10] MEDS: MAGNESIUM 2GM/50ML STERILE WATER IVPB IVPB ONE (14:02)
[2024-10-10] MEDS: POTASSIUM PHOSPHATE 30 MM in SODIUM CHLORIDE 500 ML IVPB ONE (15:19)
[2024-10-10] MEDS: AMINO ACIDS 4.25%/D5W 1,000 ML IV SCH (16:04)
[2024-10-10] MEDS: MULTIVIT INJ. ADULT COMBO WITH VIT K 1 COMBO 10 ML VIAL IV SCH (16:04)
[2024-10-10] MEDS ORDERED: SODIUM CHLORIDE 0.9% 500 ML INFUS.BAG IV ONE (16:08)
[2024-10-10] MEDS ORDERED: LACTATED RINGERS SOLUTION 1,000 ML/1,000 ML INFUS.BAG IV STA (17:04)
[2024-10-10] MEDS ORDERED: SODIUM CHLORIDE 0.9% 1000 ML INFUS.BAG IV ONE (17:15)
[2024-10-10] MEDS: morphine SULFATE 4 MG/ML VIAL IVPUSH PRN (17:27)
[2024-10-10] MEDS: SODIUM CHLORIDE 0.9% 1000 ML INFUS.BAG IV ONE (18:35)
[2024-10-10] MEDS: PIPERACILLIN/TAZOB 3.375 GM 50 ML IVPB SCH (19:32)
[2024-10-10 23:02] VITALS: BMI 28.5
[2024-10-11] MEDS ORDERED: PIPERACILLIN/TAZOB 3.375 GM 3.375 GM in DEXTROSE 5%-WATER - 50 ML IVPB SCH ×2 (02:00→18:00)
[2024-10-11] MEDS: SODIUM CHLORIDE 0.9% 500 ML INFUS.BAG IV ONE (06:52)
[2024-10-11 10:07] LABS: BASO % 0.9 % (0-2.0); EOS % 1.2 % (0-4.5); HEMATOCRIT 23.5 % (35.4-49); LYMPH % 12.6 % (8-40); MCH 29.2 pg (25.7-33.7); MCHC 33.9 g/dl (32.0-35.9); MEAN CELL VOLUME 86.1 fl (80-96); MEAN PLT VOLUME 7.3 fl (7.5-11.1); MONO % 9.2 % (3.8-10.2); NEUT % 76.1 % (42.8-82.8); PLATELET COUNT 375 10^3/uL (134-434); RBC 2.73 M/mm3 (4.00-5.60); RDW 15.4 % (11.9-15.9); WHITE BLOOD COUNT 8.6 K/mm3 (4.0-10.0)
[2024-10-11 10:25] LABS: POTASSIUM 3.3 mmol/L (3.5-5.1)
[2024-10-11 10:32] LABS: ALBUMIN 1.8 g/dl (3.4-5.0); CALCIUM 7.4 mg/dL (8.5-10.1)
[2024-10-11 10:33] LABS: BLOOD UREA NITROGEN 11.3 mg/dL (7-18); MAGNESIUM 1.5 mg/dL (1.8-2.4)
[2024-10-11 10:36] LABS: PHOSPHOROUS 2.2 mg/dL (2.5-4.9)
[2024-10-11 10:37] LABS: BILIRUBIN,TOTAL 0.5 mg/dL (0.2-1); TOT PROT 5.1 g/dl (6.4-8.2)
[2024-10-11] MEDS: MAGNESIUM 2GM/50ML STERILE WATER IVPB IVPB ONE (15:00)
[2024-10-11] MEDS: hydrALAZINE HCL 20 MG/ML VIAL IVPUSH PRN (15:15)
[2024-10-11] MEDS: KCL 10 MEQ IVPB 10 MEQ/100 ML INFUS.BAG IVPB SCH (15:33)
[2024-10-11] MEDS: POTASSIUM PHOSPHATE 30 MM in DEXTROSE 5%-WATER - 500 ML IVPB ONE (17:36)
[2024-10-11] MEDS: HYDROmorphone HCl 2 MG/ML VIAL IVPB PRN (20:58)
[2024-10-11] MEDS: POTASSIUM CHLORIDE 10 MEQ in AMINO ACIDS 4.25%/D5W 1,000 ML IV SCH (21:00)
[2024-10-12] MEDS: PIPERACILLIN/TAZOB 3.375 GM 50 ML IVPB SCH ×2 (01:16→17:36)
[2024-10-12] MEDS: METOCLOPRAMIDE HCL INJECTION 10 MG/2 ML VIAL IM ONE (06:00)
[2024-10-12 09:41] LABS: BASO % 0.7 % (0-2.0); EOS % 1.1 % (0-4.5); HEMATOCRIT 23.5 % (35.4-49); HEMOGLOBIN 7.9 GM/dL (11.7-16.9); LYMPH % 13.8 % (8-40); MCH 28.9 pg (25.7-33.7); MCHC 33.8 g/dl (32.0-35.9); MEAN CELL VOLUME 85.6 fl (80-96); MEAN PLT VOLUME 7.5 fl (7.5-11.1); MONO % 11.3 % (3.8-10.2); NEUT % 73.1 % (42.8-82.8); PLATELET COUNT 388 10^3/uL (134-434); RBC 2.74 M/mm3 (4.00-5.60); WHITE BLOOD COUNT 8.2 K/mm3 (4.0-10.0)
[2024-10-12 10:01] LABS: POTASSIUM 3.5 mmol/L (3.5-5.1)
[2024-10-12 10:05] LABS: CALCIUM 7.8 mg/dL (8.5-10.1)
[2024-10-12 10:06] LABS: ALBUMIN 1.9 g/dl (3.4-5.0); MAGNESIUM 1.6 mg/dL (1.8-2.4)
[2024-10-12 10:09] LABS: CREATININE 0.9 mg/dL (0.55-1.3)
[2024-10-12 10:10] LABS: BILIRUBIN,TOTAL 0.4 mg/dL (0.2-1); TOT PROT 5.4 g/dl (6.4-8.2)
[2024-10-12] MEDS: MAGNESIUM SULFATE IN WATER 2 GM/50 ML IVPB IVPB ONE (12:12)
[2024-10-12] MEDS: POTASSIUM PHOSPHATE 30 MM in SODIUM CHLORIDE 500 ML IVPB ONE (13:55)
[2024-10-12] MEDS: MAGNESIUM 2GM/50ML STERILE WATER IVPB IVPB ONE (13:57)
[2024-10-12] MEDS: [UNRECOGNIZED DRUG - OTHER] IVPB SCH (16:42)
[2024-10-12] MEDS: POTASSIUM PHOSPHATE IVPB SCH (16:42)
[2024-10-12] MEDS: AMINO ACID IVPB SCH (16:42)
[2024-10-12] MEDS: MULTIVIT IVPB SCH (16:42)
[2024-10-12] MEDS: FAT EMULSION/OLIVE/SOY/PHOSPHO 250 ML IV SCH (22:24)
[2024-10-13] MEDS: ONDANSETRON 4 MG/2 ML VIAL IVPUSH ONE (00:39)
[2024-10-13 10:40] LABS: BASO % 0.4 % (0-2.0); HEMATOCRIT 22.2 % (35.4-49); HEMOGLOBIN 7.5 GM/dL (11.7-16.9); LYMPH % 16.9 % (8-40); MCH 29.3 pg (25.7-33.7); MCHC 33.8 g/dl (32.0-35.9); MEAN CELL VOLUME 86.9 fl (80-96); MEAN PLT VOLUME 7.6 fl (7.5-11.1); MONO % 11.2 % (3.8-10.2); NEUT % 69.5 % (42.8-82.8); PLATELET COUNT 349 10^3/uL (134-434); RBC 2.56 M/mm3 (4.00-5.60); RDW 15.1 % (11.9-15.9); WHITE BLOOD COUNT 7.9 K/mm3 (4.0-10.0)
[2024-10-13 10:49] LABS: POTASSIUM 3.7 mmol/L (3.5-5.1)
[2024-10-13 10:58] LABS: ALBUMIN 1.9 g/dl (3.4-5.0); MAGNESIUM 1.4 mg/dL (1.8-2.4)
[2024-10-13 11:00] LABS: BLOOD UREA NITROGEN 13.6 mg/dL (7-18); TOT PROT 5.3 g/dl (6.4-8.2)
[2024-10-13 11:03] LABS: PHOSPHOROUS 1.8 mg/dL (2.5-4.9)
[2024-10-13 11:08] LABS: BILIRUBIN,TOTAL 0.4 mg/dL (0.2-1)
[2024-10-13] MEDS: MAGNESIUM 2GM/50ML STERILE WATER IVPB IVPB ONE ×2 (13:00→15:36)
[2024-10-13] MEDS: MAGNESIUM SULFATE IVPB SCH (17:21)
[2024-10-13] MEDS: MULTIVIT IVPB SCH (17:21)
[2024-10-13] MEDS: POTASSIUM PHOSPHATE IVPB SCH (17:21)
[2024-10-13] MEDS: [UNRECOGNIZED DRUG - OTHER] IVPB SCH (17:21)
[2024-10-13] MEDS: ACETAMINOPHEN 1000 MG/100 ML BAG IVPB PRN (19:47)
[2024-10-14 09:45] LABS: BASO % 0.7 % (0-2.0); EOS % 2.7 % (0-4.5); HEMATOCRIT 21.4 % (35.4-49); HEMOGLOBIN 7.3 GM/dL (11.7-16.9); LYMPH % 20.3 % (8-40); MCH 29.5 pg (25.7-33.7); MEAN CELL VOLUME 86.8 fl (80-96); MEAN PLT VOLUME 7.9 fl (7.5-11.1); MONO % 14.6 % (3.8-10.2); NEUT % 61.7 % (42.8-82.8); PLATELET COUNT 360 10^3/uL (134-434); RBC 2.46 M/mm3 (4.00-5.60); RDW 14.7 % (11.9-15.9); WHITE BLOOD COUNT 7.9 K/mm3 (4.0-10.0)
[2024-10-14 10:13] LABS: POTASSIUM 3.2 mmol/L (3.5-5.1)
[2024-10-14 10:22] LABS: ALBUMIN 1.9 g/dl (3.4-5.0); CHOLESTEROL 74 mg/dL (50-200); LDL CHOLESTEROL (ONLY SJRH) 31 mg/dL (5-100)
[2024-10-14 10:24] LABS: MAGNESIUM 1.6 mg/dL (1.8-2.4)
[2024-10-14 10:25] LABS: HDL CHOLESTEROL 28 mg/dL (40-60)
[2024-10-14 10:26] LABS: CREATININE 0.8 mg/dL (0.55-1.3)
[2024-10-14 10:28] LABS: BILIRUBIN,TOTAL 0.4 mg/dL (0.2-1); TOT PROT 5.5 g/dl (6.4-8.2)
[2024-10-14 10:50] LABS: CALCIUM 7.4 mg/dL (8.5-10.1); PHOSPHOROUS 1.8 mg/dL (2.5-4.9)
[2024-10-14] MEDS: POTASSIUM PHOSPHATE 30 MM in SODIUM CHLORIDE 500 ML IVPB ONE (12:34)
[2024-10-14] MEDS: MAGNESIUM 2GM/50ML STERILE WATER IVPB IVPB ONE (12:35)
[2024-10-14] MEDS: MAGNESIUM 1GM/D5W 100ML - 100 ML IVPB IVPB ONE (13:50)
[2024-10-14] MEDS: [UNRECOGNIZED DRUG - OTHER] IV SCH (15:47)
[2024-10-14] MEDS: MAGNESIUM SULFATE IV SCH (15:47)
[2024-10-14] MEDS: POTASSIUM CHLORIDE IV SCH (15:47)
[2024-10-14] MEDS: MULTIVIT IV SCH (15:47)
[2024-10-14] MEDS: HYDROmorphone HCl 2 MG/ML VIAL IVPUSH PRN (19:36)
[2024-10-14] MEDS: ACETAMINOPHEN 1000 MG/100 ML BAG IVPB ONE (22:09)
[2024-10-15 09:34] LABS: BASO % 0.6 % (0-2.0); EOS % 3.3 % (0-4.5); HEMATOCRIT 23.7 % (35.4-49); HEMOGLOBIN 8.2 GM/dL (11.7-16.9); MCH 29.2 pg (25.7-33.7); MCHC 34.4 g/dl (32.0-35.9); MEAN PLT VOLUME 7.7 fl (7.5-11.1); MONO % 12.7 % (3.8-10.2); NEUT % 67.4 % (42.8-82.8); PLATELET COUNT 417 10^3/uL (134-434); RBC 2.79 M/mm3 (4.00-5.60); RDW 15.2 % (11.9-15.9); WHITE BLOOD COUNT 8.7 K/mm3 (4.0-10.0)
[2024-10-15 10:03] LABS: POTASSIUM 3.6 mmol/L (3.5-5.1)
[2024-10-15 10:09] LABS: ALBUMIN 2.1 g/dl (3.4-5.0)
[2024-10-15 10:12] LABS: BLOOD UREA NITROGEN 16.4 mg/dL (7-18); CALCIUM 7.9 mg/dL (8.5-10.1); MAGNESIUM 1.6 mg/dL (1.8-2.4)
[2024-10-15 10:14] LABS: BILIRUBIN,TOTAL 0.4 mg/dL (0.2-1); CREATININE 0.8 mg/dL (0.55-1.3)
[2024-10-15] MEDS: IOHEXOL (OMNIPAQUE IV) 350 MG/ML - 100 ML BOTTLE GT ONE (10:47)
[2024-10-15] MEDS ORDERED: BENZOIN/ALOE VERA/STORAX/TOLU 58 ML BOTTLE ONE (14:41)
[2024-10-15] MEDS: MAGNESIUM 2GM/50ML STERILE WATER IVPB IVPB ONE (16:00)
[2024-10-15] MEDS: [UNRECOGNIZED DRUG - OTHER] IV SCH (17:23)
[2024-10-15] MEDS: POTASSIUM PHOSPHATE 30 MM in SODIUM CHLORIDE 500 ML IVPB ONE (17:23)
[2024-10-15] MEDS: POTASSIUM CHLORIDE IV SCH (17:23)
[2024-10-15] MEDS: MULTIVIT IV SCH (17:23)
[2024-10-15] MEDS: MAGNESIUM SULFATE IV SCH (17:23)
[2024-10-15] MEDS: IBUPROFEN 600 MG TABLET (FP) PO PRN (20:44)
[2024-10-15] MEDS: ACETAMINOPHEN 500 MG TABLET (FP) PO PRN (20:45)
[2024-10-15] MEDS: THIAMINE HCL 200 MG/2 ML VIAL IVPB SCH (21:14)
[2024-10-16] MEDS: ACETAMINOPHEN 1000 MG/100 ML BAG IVPB ONE ×2 (06:00→06:01)
[2024-10-16] MEDS: ONDANSETRON 4 MG/2 ML VIAL IVPUSH PRN (06:39)
[2024-10-16 09:01] LABS: BASO % 0.8 % (0-2.0); EOS % 3.5 % (0-4.5); HEMATOCRIT 23.5 % (35.4-49); HEMOGLOBIN 8.1 GM/dL (11.7-16.9); LYMPH % 17.8 % (8-40); MCH 29.1 pg (25.7-33.7); MCHC 34.4 g/dl (32.0-35.9); MEAN CELL VOLUME 84.8 fl (80-96); MEAN PLT VOLUME 7.7 fl (7.5-11.1); MONO % 12.1 % (3.8-10.2); NEUT % 65.8 % (42.8-82.8); PLATELET COUNT 493 10^3/uL (134-434); RBC 2.77 M/mm3 (4.00-5.60); RDW 15.1 % (11.9-15.9); WHITE BLOOD COUNT 9.8 K/mm3 (4.0-10.0)
[2024-10-16 09:18] LABS: POTASSIUM 3.6 mmol/L (3.5-5.1)
[2024-10-16 09:20] LABS: ALBUMIN 2.1 g/dl (3.4-5.0); CALCIUM 8.2 mg/dL (8.5-10.1)
[2024-10-16 09:21] LABS: BLOOD UREA NITROGEN 12.8 mg/dL (7-18); MAGNESIUM 1.8 mg/dL (1.8-2.4)
[2024-10-16 09:24] LABS: CREATININE 0.7 mg/dL (0.55-1.3)
[2024-10-16 09:25] LABS: BILIRUBIN,TOTAL 0.4 mg/dL (0.2-1)
[2024-10-16] MEDS: amLODIPine BESYLATE 5 MG TABLET (FP) PO SCH (11:04)
[2024-10-16] MEDS ORDERED: INSULIN ASPART SLIDING SCALE (NOVOLOG) 1 VIAL SQ ONE (17:32)
[2024-10-16] MEDS: POTASSIUM PHOSPHATE 15 MM in SODIUM CHLORIDE 250 ML IVPB ONE (17:45)
[2024-10-16] MEDS: [UNRECOGNIZED DRUG - OTHER] IV SCH (17:48)
[2024-10-16] MEDS: POTASSIUM CHLORIDE IV SCH (17:48)
[2024-10-16] MEDS: MAGNESIUM SULFATE IV SCH (17:48)
[2024-10-16] MEDS: MULTIVIT IV SCH (17:48)
[2024-10-17] MEDS: ALBUTEROL SO4 HFA INHALER IH PRN (06:58)
[2024-10-17] MEDS ORDERED: INSULIN (LEVEMIR) 100 UNITS/ML UNITS SQ ONE (08:10)
[2024-10-17 09:29] LABS: BASO % 0.5 % (0-2.0); EOS % 2.9 % (0-4.5); HEMATOCRIT 22.9 % (35.4-49); HEMOGLOBIN 7.6 GM/dL (11.7-16.9); LYMPH % 21.4 % (8-40); MCH 28.7 pg (25.7-33.7); MCHC 33.1 g/dl (32.0-35.9); MEAN CELL VOLUME 86.9 fl (80-96); MEAN PLT VOLUME 8.2 fl (7.5-11.1); NEUT % 67.2 % (42.8-82.8); PLATELET COUNT 480 10^3/uL (134-434); RBC 2.63 M/mm3 (4.00-5.60); RDW 15.3 % (11.9-15.9); WHITE BLOOD COUNT 9.9 K/mm3 (4.0-10.0)
[2024-10-17 09:51] LABS: POTASSIUM 3.8 mmol/L (3.5-5.1)
[2024-10-17] MEDS ORDERED: MULTIVITAMINS (DAILY MVI) TABLET (FP) PO SCH (10:00)
[2024-10-17 10:09] LABS: CALCIUM 8.3 mg/dL (8.5-10.1)
[2024-10-17 10:10] LABS: ALBUMIN 2.2 g/dl (3.4-5.0)
[2024-10-17 10:11] LABS: BILIRUBIN,TOTAL 0.4 mg/dL (0.2-1); MAGNESIUM 1.6 mg/dL (1.8-2.4)
[2024-10-17 10:13] LABS: CREATININE 0.7 mg/dL (0.55-1.3); TOT PROT 5.9 g/dl (6.4-8.2)
[2024-10-17 10:14] LABS: PHOSPHOROUS 2.4 mg/dL (2.5-4.9)
[2024-10-17] MEDS: MAGNESIUM 2GM/50ML STERILE WATER IVPB IVPB ONE (13:09)
[2024-10-17] MEDS: POTASSIUM PHOSPHATE 15 MM in SODIUM CHLORIDE 250 ML IVPB ONE (14:33)
[2024-10-17] MEDS: amLODIPine BESYLATE 5 MG TABLET (FP) PO ONE (16:39)
[2024-10-17] MEDS: MAGNESIUM SULF 50% (8.12 MEQ/2 ML-1 GM VIAL) IVPB ONE (18:27)
[2024-10-18 10:31] LABS: BASO % 0.4 % (0-2.0); EOS % 2.3 % (0-4.5); HEMATOCRIT 22.9 % (35.4-49); HEMOGLOBIN 7.4 GM/dL (11.7-16.9); LYMPH % 21.9 % (8-40); MCHC 32.3 g/dl (32.0-35.9); MEAN CELL VOLUME 86.6 fl (80-96); MEAN PLT VOLUME 8.1 fl (7.5-11.1); NEUT % 67.4 % (42.8-82.8); PLATELET COUNT 525 10^3/uL (134-434); RBC 2.64 M/mm3 (4.00-5.60); RDW 15.8 % (11.9-15.9); WHITE BLOOD COUNT 12.3 K/mm3 (4.0-10.0)
[2024-10-18 10:50] LABS: POTASSIUM 3.9 mmol/L (3.5-5.1)
[2024-10-18 10:57] LABS: ALBUMIN 2.2 g/dl (3.4-5.0); BLOOD UREA NITROGEN 9.9 mg/dL (7-18); CALCIUM 8.3 mg/dL (8.5-10.1); MAGNESIUM 1.8 mg/dL (1.8-2.4)
[2024-10-18 10:59] LABS: BILIRUBIN,TOTAL 0.4 mg/dL (0.2-1)
[2024-10-18 11:01] LABS: CREATININE 0.7 mg/dL (0.55-1.3)
[2024-10-18 13:32] LABS: PHOSPHOROUS 2.1 mg/dL (2.5-4.9)
[2024-10-18] MEDS: PIPERACILLIN/TAZOB 4.5 GM 4.5 GM/100 ML BAG IVPB SCH (15:47)
[2024-10-18] MEDS: POTASSIUM PHOSPHATE 30 MM in SODIUM CHLORIDE 500 ML IVPB ONE (19:56)
[2024-10-19 00:23] LABS: PH,URINE 5.5 (5.0-8.0); URINE APPEARANCE CLEAR; URINE BILIRUBIN NEGATIVE (NEGATIVE); URINE COLOR YELLOW; URINE GLUCOSE (UA) NEGATIVE (NEGATIVE); URINE KETONE NEGATIVE (NEGATIVE); URINE LEUK ESTERASE NEGATIVE (NEGATIVE); URINE NITRITE NEGATIVE (NEGATIVE); URINE PROTEIN TRACE (NEGATIVE); URINE UROBILINOGEN 0.2 mg/dL (0.2-1.0)
[2024-10-19 09:14] LABS: POTASSIUM 3.8 mmol/L (3.5-5.1)
[2024-10-19 09:21] LABS: ALBUMIN 2.2 g/dl (3.4-5.0)
[2024-10-19 09:22] LABS: BLOOD UREA NITROGEN 11.2 mg/dL (7-18)
[2024-10-19 09:23] LABS: BILIRUBIN,TOTAL 0.3 mg/dL (0.2-1); CALCIUM 8.4 mg/dL (8.5-10.1); MAGNESIUM 1.7 mg/dL (1.8-2.4); TOT PROT 6.1 g/dl (6.4-8.2)
[2024-10-19 09:25] LABS: CREATININE 0.8 mg/dL (0.55-1.3)
[2024-10-19 10:53] LABS: HEMATOCRIT 22.8 % (35.4-49); HEMOGLOBIN 7.6 GM/dL (11.7-16.9); MCHC 33.4 g/dl (32.0-35.9); MEAN CELL VOLUME 86.8 fl (80-96); PLATELET COUNT 509 10^3/uL (134-434); RBC 2.62 M/mm3 (4.00-5.60); RDW 15.7 % (11.9-15.9); WHITE BLOOD COUNT 9.5 K/mm3 (4.0-10.0)
[2024-10-19 12:32] LABS: ANISOCYTOSIS 0; MACROCYTOSIS 0
[2024-10-19] MEDS ORDERED: MAGNESIUM 2GM/50ML STERILE WATER IVPB IVPB ONE (13:00)
[2024-10-19] MEDS: MAGNESIUM 2GM/50ML STERILE WATER IVPB IVPB ONE ×2 (16:30→17:38)
[2024-10-19] MEDS: SODIUM PHOSPHATE - 15 MM in SODIUM CHLORIDE 250 ML IVPB ONE (19:52)
[2024-10-20 07:49] LABS: BASO % 0.5 % (0-2.0); EOS % 3.8 % (0-4.5); HEMATOCRIT 21.4 % (35.4-49); HEMOGLOBIN 7.3 GM/dL (11.7-16.9); LYMPH % 13.9 % (8-40); MCH 29.1 pg (25.7-33.7); MCHC 34.2 g/dl (32.0-35.9); MEAN CELL VOLUME 85.2 fl (80-96); MEAN PLT VOLUME 7.7 fl (7.5-11.1); MONO % 10.6 % (3.8-10.2); NEUT % 71.2 % (42.8-82.8); PLATELET COUNT 472 10^3/uL (134-434); RBC 2.52 M/mm3 (4.00-5.60)
[2024-10-20 08:09] LABS: POTASSIUM 3.7 mmol/L (3.5-5.1)
[2024-10-20 08:14] LABS: CHOLESTEROL 87 mg/dL (50-200)
[2024-10-20 08:15] LABS: LDL CHOLESTEROL (ONLY SJRH) 48 mg/dL (5-100)
[2024-10-20 08:17] LABS: HDL CHOLESTEROL 24 mg/dL (40-60)
[2024-10-20 08:18] LABS: ALBUMIN 2.2 g/dl (3.4-5.0); CALCIUM 8.3 mg/dL (8.5-10.1)
[2024-10-20 08:19] LABS: BLOOD UREA NITROGEN 11.3 mg/dL (7-18); MAGNESIUM 1.7 mg/dL (1.8-2.4)
[2024-10-20 08:22] LABS: CREATININE 0.8 mg/dL (0.55-1.3); PHOSPHOROUS 2.8 mg/dL (2.5-4.9)
[2024-10-20 08:23] LABS: BILIRUBIN,TOTAL 0.2 mg/dL (0.2-1); TOT PROT 5.9 g/dl (6.4-8.2)
[2024-10-20] MEDS: MAGNESIUM OXIDE 400 MG TABLET (FP) PO ONE (17:45)
[2024-10-21 08:19] LABS: BASO % 0.6 % (0-2.0); EOS % 3.7 % (0-4.5); HEMATOCRIT 21.8 % (35.4-49); HEMOGLOBIN 7.4 GM/dL (11.7-16.9); LYMPH % 17.5 % (8-40); MCH 29.2 pg (25.7-33.7); MCHC 34.2 g/dl (32.0-35.9); MEAN CELL VOLUME 85.4 fl (80-96); MEAN PLT VOLUME 7.8 fl (7.5-11.1); MONO % 10.3 % (3.8-10.2); NEUT % 67.9 % (42.8-82.8); PLATELET COUNT 464 10^3/uL (134-434); RBC 2.55 M/mm3 (4.00-5.60); RDW 15.8 % (11.9-15.9); WHITE BLOOD COUNT 10.2 K/mm3 (4.0-10.0)
[2024-10-21 08:41] LABS: ALBUMIN 2.2 g/dl (3.4-5.0); CALCIUM 8.4 mg/dL (8.5-10.1); MAGNESIUM 1.9 mg/dL (1.8-2.4)
[2024-10-21 08:45] LABS: CREATININE 0.8 mg/dL (0.55-1.3)
[2024-10-21 08:46] LABS: BILIRUBIN,TOTAL 0.3 mg/dL (0.2-1); TOT PROT 6.2 g/dl (6.4-8.2)
[2024-10-21] MEDS: IRON SUCROSE INJECTION 100 MG in SODIUM CHLORIDE 95 ML IVPB ONE (10:57)
[2024-10-22 08:21] LABS: BASO % 0.6 % (0-2.0); EOS % 3.5 % (0-4.5); HEMATOCRIT 23.2 % (35.4-49); HEMOGLOBIN 7.7 GM/dL (11.7-16.9); LYMPH % 16.8 % (8-40); MCH 28.8 pg (25.7-33.7); MCHC 33.1 g/dl (32.0-35.9); MEAN CELL VOLUME 86.9 fl (80-96); MEAN PLT VOLUME 7.7 fl (7.5-11.1); MONO % 9.5 % (3.8-10.2); NEUT % 69.6 % (42.8-82.8); PLATELET COUNT 463 10^3/uL (134-434); RBC 2.67 M/mm3 (4.00-5.60); RDW 15.5 % (11.9-15.9); WHITE BLOOD COUNT 10.5 K/mm3 (4.0-10.0)
[2024-10-22 08:47] LABS: POTASSIUM 3.8 mmol/L (3.5-5.1)
[2024-10-22 08:55] LABS: ALBUMIN 2.2 g/dl (3.4-5.0); BLOOD UREA NITROGEN 8.5 mg/dL (7-18)
[2024-10-22 08:56] LABS: BILIRUBIN,TOTAL 0.3 mg/dL (0.2-1); CALCIUM 8.3 mg/dL (8.5-10.1); MAGNESIUM 1.7 mg/dL (1.8-2.4)
[2024-10-22 08:58] LABS: CREATININE 0.8 mg/dL (0.55-1.3)
[2024-10-22] MEDS: IRON SUCROSE INJECTION 200 MG in SODIUM CHLORIDE 100 ML IVPB ONE (10:11)
[2024-10-22] MEDS: MAGNESIUM 2GM/50ML STERILE WATER IVPB IVPB ONE (10:15)
[2024-10-22 16:17] VITALS: BP 137/79; PULSE 96; RESP 18; TEMP 97.9
[2024-10-22] MEDS ORDERED: AMOX TR/POT CLAV 500MG/125MG TABLETS (FP) PO SCH (17:30)
== END 2024-10-22 16:53 | DRG 335 ==
LOC: JER 15:27 → JERBED 20:43 → JICU 21:15 → J4W 10-04 02:12 → J6S 10-08 19:06 → J8W 10-11 20:28
PROVIDERS: ADMIT Internal Medicine Pulmonary Disease; ATTEND Nurse Practitioner Family
PROC: 0W9G00Z Drainage of Peritoneal Cavity with Drainage Device, Open Approach (ICD-10-PCS; 2024-10-01)
PROC: 0DJ08ZZ Inspection of Upper Intestinal Tract, Via Natural or Artificial Opening Endoscopic (ICD-10-PCS; 2024-10-01)
PROC: 4A133B1 Monitoring of Arterial Pressure, Peripheral, Percutaneous Approach (ICD-10-PCS; 2024-10-01)
PROC: 4A133J1 Monitoring of Arterial Pulse, Peripheral, Percutaneous Approach (ICD-10-PCS; 2024-10-01)
PROC: 30233N1 Transfusion of Nonautologous Red Blood Cells into Peripheral Vein, Percutaneous Approach (ICD-10-PCS; 2024-10-01)
PROC: 30233K1 Transfusion of Nonautologous Frozen Plasma into Peripheral Vein, Percutaneous Approach (ICD-10-PCS; 2024-10-01)
PROC: 0DTJ0ZZ Resection of Appendix, Open Approach (ICD-10-PCS; principal; 2024-10-01 20:30)
PROC: 0DNW0ZZ Release Peritoneum, Open Approach (ICD-10-PCS; 2024-10-01 20:30)
PROC: B548ZZA Ultrasonography of Superior Vena Cava, Guidance (ICD-10-PCS; 2024-10-10)
PROC: 02HV33Z Insertion of Infusion Device into Superior Vena Cava, Percutaneous Approach (ICD-10-PCS; 2024-10-10)
PROC: 3E0436Z Introduction of Nutritional Substance into Central Vein, Percutaneous Approach (ICD-10-PCS; 2024-10-15)
DX: K56.609 Unspecified intestinal obstruction, unspecified as to partial versus complete obstruction (principal); E43 Unspecified severe protein-calorie malnutrition; J18.9 Pneumonia, unspecified organism; K85.90 Acute pancreatitis without necrosis or infection, unspecified; K68.19 Other retroperitoneal abscess; N17.0 Acute kidney failure with tubular necrosis; E87.1 Hypo-osmolality and hyponatremia; N39.0 Urinary tract infection, site not specified; E87.20 Acidosis, unspecified; K91.89 Other postprocedural complications and disorders of digestive system; Y83.8 Other surgical procedures as the cause of abnormal reaction of the patient, or of later complication, without mention of misadventure at the time of the procedure; E83.42 Hypomagnesemia; E83.39 Other disorders of phosphorus metabolism; K56.7 Ileus, unspecified; I10 Essential (primary) hypertension; E78.5 Hyperlipidemia, unspecified; R73.9 Hyperglycemia, unspecified; F10.20 Alcohol dependence, uncomplicated; J45.909 Unspecified asthma, uncomplicated; K20.80 Other esophagitis without bleeding; N28.1 Cyst of kidney, acquired; D64.9 Anemia, unspecified; Z68.27 Body mass index [BMI] 27.0-27.9, adult
CPT/HCPCS: 0241U-QW; 36415; 36569; 36600; 71045-TC-FY; 71275-TC; 74018-TC-FY; 74019-TC-FY; 74176-TC; 74177-TC; 76705-TC; 76775-TC; 80048; 80053; 80061; 81003; 82150; 82248; 82550; 82803; 82962; 83516; 83520; 83540; 83550; 83605; 83690; 83735; 84100; 84155; 84165; 84478; 84484; 85025; 85027; 85379; 85610; 85730; 86038; 86140; 86160; 86225; 86256; 86704; 86708; 86803; 86850; 86900; 86901; 86922; 87040; 87086; 87340; 87481; 87517; 87522; 87635; 88108; 88304-TC; 88305-TC; 88307-TC; 88331-TC; 93005; 93010; 93306-TC; 93970-TC; 94640; 97116-GP; 97162-GP; 99285-25; J0131; J1100; J1644; J1756; P9058; Q9967